=== PATIENT | male | born 1945 | race Caucasian/White ===

== ENCOUNTER 2024-08-27 06:54 | Emergency (ER) | payer MEDICARE ==
[~2024-08-27] VITALS: Ht 175.3 cm; Wt 90.9 kg
[2024-08-27] MEDS ORDERED: LISINOPRIL10 MG PO (07:31)
[2024-08-27 07:33] LABS: BASO # 0.02 K/mm3 (0.02-0.10); EOS # 0.03 K/mm3 (0.04-0.40); EOS % 0.3 % (0.0-4.0); HEMATOCRIT 50.6 % (42.0-52.0); HEMOGLOBIN 17.1 g/dL (13.5-18.0); LYMPH# 1.24 K/mm3 (1.50-4.00); MEAN CELL VOLUME 96 fl (78-100); MEAN CORPUSCULAR HEMOGLOBIN 32 pg (27-31); MEAN CORPUSCULAR HGB CONC 34 g/dL (33-37); MEAN PLATELET VOLUME 9.6 fl (7.4-10.4); MONO # 0.59 K/mm3 (0.20-0.80); NEU # 7.61 K/mm3 (1.40-6.50); PLATELET COUNT 198 K/mm3 (130-400); RED BLOOD COUNT 5.29 M/mm3 (4.20-5.60); RED CELL DISTRIBUTION WIDTH 13.3 % (11.5-14.5); WHITE BLOOD COUNT 9.5 K/mm3 (4.8-10.8)
[2024-08-27 07:43] LABS: ALBUMIN 4.4 g/dL (3.4-4.8); CALCIUM 9.6 mg/dL (8.3-10.5)
[2024-08-27 07:45] LABS: TOTAL PROTEIN 7.2 g/dL (6.2-8.1)
[2024-08-27 07:46] LABS: PH-URINE 5.5 (5.0 - 8.0); TOTAL BILIRUBIN 1.5 mg/dL (0.2-1.2); URINE APPEARANCE SLIGHTLY CLOUDY (CLEAR); URINE COLOR YELLOW (YELLOW); URINE GLUCOSE NEGATIVE (NEGATIVE); URINE KETONE 2+ (NEGATIVE); URINE PROTEIN(semi-quant) NEGATIVE (NEGATIVE)
[2024-08-27 07:47] LABS: URINE BILIRUBIN 1+ (NEGATIVE); URINE BLOOD NEGATIVE (NEGATIVE); URINE LEUKOCYTE ESTERASE NEGATIVE (NEGATIVE); URINE MUCUS PRESENT (NOT PRESENT); URINE NITRATE NEGATIVE (NEGATIVE)
[2024-08-27 17:09] VITALS: BP 146/76
== END 2024-08-27 17:10 | disposition home or self-care (01) ==
LOC: EDBD 06:54 → ED 06:54
PROVIDERS: Family Medicine
DX: R41.0 Disorientation, unspecified (principal); F03.90 Unspecified dementia, unspecified severity, without behavioral disturbance, psychotic disturbance, mood disturbance, and anxiety; I10 Essential (primary) hypertension; Z79.899 Other long term (current) drug therapy